=== PATIENT | female | born 1965 | race Two or more races ===

== ENCOUNTER → 2022-08-24 | Outpatient (CLI) | payer MEDICAID | END | disposition home or self-care (01) | LOC: Rad HDHVI 15:05 | PROVIDERS: ATTEND Internal Medicine Cardiovascular Disease | DX: I10 Essential (primary) hypertension (principal) | CPT/HCPCS: 93306 ==

== ENCOUNTER → 2022-08-27 | Outpatient (CLI) | payer MEDICAID ==
[~2022-08-27] VITALS: Ht 165.1 cm; Wt 70.8 kg
[~2022-08-27] MED LIST: ADENOSINE 59 MG in GIVE UN-DILUTED 0 ML IV ONE; ADENOSINE 90 MG/30 ML INJ IV ONE
== END | disposition home or self-care (01) ==
LOC: Rad HDHVI 14:30
PROVIDERS: ATTEND Internal Medicine Cardiovascular Disease
DX: Z01.810 Encounter for preprocedural cardiovascular examination (principal); R07.9 Chest pain, unspecified; E78.5 Hyperlipidemia, unspecified; I73.9 Peripheral vascular disease, unspecified; Z82.49 Family history of ischemic heart disease and other diseases of the circulatory system; Z79.899 Other long term (current) drug therapy
CPT/HCPCS: 78452; 93005; 96374; 96375; A9500; J0153

== ENCOUNTER 2024-03-27 10:29 | Emergency (ER) | payer MEDICAID ==
[~2024-03-27] VITALS: Ht 165.1 cm; Wt 70.7 kg
[2024-03-27 10:44] VITALS: BP 136/76; PULSE 90; RESP 18; O2SAT 97
--- NOTE | 2024-03-27 11:02 | ED.PDOC ---
Musculoskeletal HPI Comments HPI: 58y F who presents to the ED for left lower extremity pain. Pt had the following ED course: -pt has surgery for vascular stent placed in the L femoral artery and had fempop surgery. -pt states she started to have pain in L lower extremity and went to see PCP who did US scan and found vascular stent had collapsed and was referred to local ED for further evaluation -pt also states she has ulcer on L toe since December and states she is having increasing pain since but states no provider had tended to her ulcer since Patient states she has not appointment with her surgeon who operated on her this coming SaturdayMarch 31 at 1:30 p.m.. Patient states that since her stent that was placed in May of this year, she has had pain in her left leg that is worse with movement and weight-bearing and walking. She has sought attention and medical evaluation for this numerous times most recently at [facility] earlier this week where they did diagnostic testing and transferred her to [facility] for higher level of care. Per patient, patient was seen at [facility] and given heparin morphine Zofran and fluids. Patient is already on daily Eliquis and states compliance. Patient had a vascular arterial lower extremity bilaterally which shows an impression of left femoral tibial bypass graft occluded patent stents in the bilateral distal superficial femoral arteries and popliteal arteries. Based on velocity there is 20-49% stenosis of the right common femoral artery and in the right mid popliteal artery no evidence of occlusion or high-grade stenosis in the bilateral lower extremities arteries. This study was performed on March 19, 2024. Per patient while she was at [facility] they decided not to do any surgical intervention and referred her to outpatient follow up with the own surgeon. She has an appointment coming up with her surgeon this coming Saturday. I have informed the patient already that we have no vascular surgery in our facility. VITALS: Temp: 97.9 F RR: 20 02 sat : 97 % on room air HR: 90 BP: 136/76 PMH: bilateral DVT's, hyperlipidemia, peripheral vascular disease PSH: L fem pop surgery Social history: endorses tobacco use, endorses ETOH use, endorses drug use (marijuana gummies) Medications: eliquis, atorvastatin, gabapentin, Cymbalta Allergies: doxycycline, nifedipine HPI: Poor Historian. REVIEW OF SYSTEMS: CONSTITUTIONAL: Denies acute: fever, diaphoresis, chills, generalized weakness. HEAD: Denies acute: headache, photophobia Eyes: Denies acute: Double vision, vision loss, eye pain, eye discharge. EARS: Denies acute: tinnitus, hearing loss, ear discharge, ear pain, THROAT: Denies acute: sore throat, swelling, difficulty swallowing , pain with swallowing, change in voice. NECK: Denies acute: neck pain, neck swelling, stiff neck. HEART: Denies acute : chest pain, palpitations, LUNGS: Denies acute: SOB, wheezing, cough, hemoptysis ABDOMEN: Denies acute: abdominal pain, Nausea, Vomiting, diarrhea, melena , hematemesis, hematochezia SKIN: Denies acute: rash, redness, lesions, itchiness. EXTREMITIES: Denies acute: calf pain, weakness, Denies acute: Low back pain. Neuro: Denies acute: focal neurological deficit, motor or sensory focal neurological deficit, tremors, seizure like activity, confusion, dizziness, change in mental status, loss of bowel or bladder function, cauda equina like symptoms. : Denies acute: dysuria, hematuria, flank pain, increase in urinary frequency. PSYCH: Denies acute: hallucination, suicidal ideation, homicidal ideation. FEMALE: Denies acute: abnormal vaginal bleeding, foul odor, unusual discharge. PHYSICAL EXAM: General: no acute distress, awake and alert. Head: normocephalic, atraumatic. Neck: supple, trachea is midline, no swelling. Throat: Normal phonation. Eyes:, no erythema, no purulent discharge, no proptosis, no icterus. Heart: regular rate, regular rhythm, no significant murmur appreciated. Lungs: no apparent respiratory distress, Able to speak in full sentences. No wheezing, no rhonchi, no crackles. No stridors Clear to auscultation bilaterally. Abdomen: non tender to palpation, non distended, soft, no guarding, no rebound, + bowel sounds. Neuro: Awake, Alert, oriented to name, self, situation, follows commands GCS=15. Speech is normal. Skin: no petechia, no purpura, no cyanosis, non-pale, not jaundice. Lower extremities: --no - Pitting edema no deformity, no focal swelling, no calf TTP. Makes eye contact. moves all four extremities. Face: no apparent facial droop. Ambulating in the ED independently. Pedal pulses are palpable. Chief Complaint: Lower Extremity Time Seen by MD: 11:10 Reviewed Notes: Medications, Allergies Allergies: Coded Allergies: No Known Drug Allergy (Verified Allergy, Unknown, 08/27/22) Information Source: Patient Mode of Arrival: Ambulatory Brought in by: self Past Medical History PAST MEDICAL HISTORY: High Lipids Family History Family History: Reviewed,noncontributory to illness Social History Smoker: Cigarettes Alcohol: Occasionally Drugs: Marijuana Lives In: Home Was a procedure done? Was a procedure done?: No X-Ray, Labs, Meds, VS Vital Signs Date Time Temp Pulse Resp B/P (MAP) Pulse Ox O2 Delivery O2 Flow Rate FiO2 03/27/24 10:44 97.9 90 18 136/76 (96) 97 Lab Test 03/27/24 11:16 Range/Units White Blood Count 11.2 H 4.4-10.8 10^3/uL Red Blood Count 5.28 H 4.0-5.20 10^6/uL Hemoglobin 14.9 12.2-16.2 g/dL Hematocrit 44.9 36.0-46.0 % Mean Corpuscular Volume 85.1 80.0-100.0 fL Mean Corpuscular Hemoglobin 28.2 28.0-32.0 pg Mean Corpuscular Hemoglobin Concent 33.2 32.0-36.0 g/dL Red Cell Distribution Width 14.8 H 11.8-14.3 % Platelet Count 729 H 140-450 10^3/uL Mean Platelet Volume 7.5 6.9-10.8 fL Neutrophils (%) (Auto) 79.2 37.0-80.0 % Lymphocytes (%) (Auto) 14.6 10.0-50.0 % Monocytes (%) (Auto) 4.2 0.0-12.0 % Eosinophils (%) (Auto) 1.2 0.0-7.0 % Basophils (%) (Auto) 0.8 0.0-2.0 % Neutrophils # (Auto) 8.8 H 1.6-8.6 10 ^3/uL Lymphocytes # (Auto) 1.6 0.4-5.4 10 ^3/uL Monocytes # (Auto) 0.5 0-1.3 10 ^3/uL Eosinophils # (Auto) 0.1 0-0.8 10 ^3/uL Basophils # (Auto) 0.1 0-0.2 10 ^3/uL Nucleated Red Blood Cells 0.0 % Erythrocyte Sedimentation Rate 16 0-20 mm/hr Sodium Level 138 136-145 mmol/L Potassium Level 4.4 3.5-5.1 mmol/L Chloride Level 104 98-107 mmol/L Carbon Dioxide Level 27 20-31 mmol/L Anion Gap 7 5-15 Blood Urea Nitrogen 16 9-23 mg/dL Creatinine 1.13 H 0.550-1.02 mg/dL Glomerular Filtration Rate Calc 56 >90 mL/min BUN/Creatinine Ratio 14.2 10.0-20.0 Serum Glucose 103 74-106 mg/dL Lactic Acid Level 0.7 0.4-2.0 mmol/L Calcium Level 10.1 8.7-10.4 mg/dL Total Bilirubin 0.6 0.2-1.0 mg/dL Aspartate Amino Transferase (AST) 30 13-40 U/L Alanine Aminotransferase (ALT) 32 7-40 U/L Alkaline Phosphatase 122 H 46-116 U/L Troponin I High Sensitivity 3 L </=34 ng/L C-Reactive Protein High Sensitivity 0.50 <1.0 mg/dL Total Protein 7.8 5.7-8.2 g/dL Albumin 4.5 3.2-4.8 g/dL Time of 1ST Reevaluation: 15:46 (Patient was unable to be found multiple times by ultrasound staff.) Reevaluation 1ST: N/A Patient Education/Counseling: Diagnosis, Treatment Family Education/Counseling: No Family Present Comments MDM: Patient presented with the above HPI.----- extremities pain-- -workup was initiated. patient was found with the above mentioned diagnosis. the following medications were ordered: none the following tests were ordered: Bilateral lower extremity duplex, L lower DVT, troponin x 1, lactic acid, ESR, CRP, CBC, CMP, Patient ED course and VS have been stabilized. Patient has been reassessed in the ED and remained in a stable condition. Patient has been observed in the ED adequate length of time to insure improvement/stability. Escalation of care considered: Consideration of escalation to observation or admission. All the reports of any imaging studies that were ordered by myself were reviewed by myself. Pt has ELOPED from emergency department. Departure 1 Departure Time of Disposition: 15:45 Impression: Primary Impression: Chronic leg pain Additional Impression: Peripheral vascular disease Disposition: 07 LEFT AWOL/ELOPED Condition: Stable Discharged With: Self I personally scribed for DERRICK SILVA DO ([email or web address]) on 03/27/24 at 11:02. Electronically submitted by Abraham Castillo (STEVE). I personally scribed for DERRICK SILVA DO ([email or web address]) on 03/27/24 at 11:11. Electronically [facility] I personally scribed for DERRICK SILVA DO ([email or web address]) on 03/27/24 at 11:45. Electronically submitted by Abraham Castillo (STEVE). I personally scribed for DERRICK SILVA DO ([email or web address]) on 03/27/24 at 18:05. Electronically submitted by Abraham Castillo (STEVE). I personally scribed for DERRICK SILVA DO ([email or web address]) on 03/27/24 at 18:08. Electronically submitted by Abraham Castillo ([facility] DERRICK SILVA DO Mar 27, 2024 11:02
[2024-03-27 11:30] LABS: Basophils # (auto) 0.1 10 ^3/uL (0-0.2); Basophils % (auto) 0.8 % (0.0-2.0); Eosinophils # (auto) 0.1 10 ^3/uL (0-0.8); Eosinophils % (auto) 1.2 % (0.0-7.0); Hematocrit 44.9 % (36.0-46.0); Hemoglobin 14.9 g/dL (12.2-16.2); Lymphocytes # (auto) 1.6 10 ^3/uL (0.4-5.4); Lymphocytes % (auto) 14.6 % (10.0-50.0); Mean Corpuscular Hemoglobin 28.2 pg (28.0-32.0); Mean Corpuscular Hgb Conc. 33.2 g/dL (32.0-36.0); Mean Corpuscular Volume 85.1 fL (80.0-100.0); Monocytes # (auto) 0.5 10 ^3/uL (0-1.3); Monocytes % (auto) 4.2 % (0.0-12.0); Neutrophils # (auto) 8.8 10 ^3/uL (1.6-8.6); Neutrophils % (auto) 79.2 % (37.0-80.0); Platelet Count (auto) 729 10^3/uL (140-450); Red Blood Cells 5.28 10^6/uL (4.0-5.20); Red Cell Distribution Width 14.8 % (11.8-14.3); White Blood Cell 11.2 10^3/uL (4.4-10.8)
[2024-03-27 12:12] LABS: Erythrocyte Sedimentation Rate 16 mm/hr (0-20)
[2024-03-27 12:18] LABS: Alanine Aminotransferase 32 U/L (7-40); Albumin 4.5 g/dL (3.2-4.8); Anion Gap 7 (5-15); Aspartate Aminotransferase 30 U/L (13-40); BUN/Creatinine Ratio 14.2 (10.0-20.0); Bilirubin, Total 0.6 mg/dL (0.2-1.0); Blood Urea Nitrogen 16 mg/dL (9-23); Calcium 10.1 mg/dL (8.7-10.4); Carbon Dioxide 27 mmol/L (20-31); Chloride 104 mmol/L (98-107); Glucose 103 mg/dL (74-106); Potassium 4.4 mmol/L (3.5-5.1); Sodium 138 mmol/L (136-145); Total Protein 7.8 g/dL (5.7-8.2)
[2024-03-27 12:35] LABS: Alkaline Phosphatase 122 U/L (46-116)
== END 2024-03-27 15:17 | disposition left against medical advice (07) ==
LOC: ER 10:29
DX: I73.9 Peripheral vascular disease, unspecified (principal); G89.29 Other chronic pain; M79.605 Pain in left leg; E78.5 Hyperlipidemia, unspecified; F17.210 Nicotine dependence, cigarettes, uncomplicated; F12.90 Cannabis use, unspecified, uncomplicated; Z88.8 Allergy status to other drugs, medicaments and biological substances; Z79.899 Other long term (current) drug therapy
CPT/HCPCS: 36415; 80053; 83605; 84484; 85025; 85652; 86141